=== PATIENT | male | born 1960 | race Caucasian/White ===

== ENCOUNTER 2023-03-31 16:26 | Emergency (ER) | payer BC ==
[2023-03-31] MEDS ORDERED: Lactated Ringer's 1,000 ML ONE ×2 (17:06→18:13)
[2023-03-31 17:18] LABS: #Basophils 0.1 thou/uL (0.0-0.2); #Eosinphils 0.3 thou/uL (0.0-0.7); #Lymphocytes 1.8 thou/uL (1.20-3.40); #Monocytes 1.3 thou/uL (0.11-0.59); #Neutrophils 7.1 thou/uL (1.40-6.50); %Basophils 1.2 % (0.0-1.0); %Eosinophils 2.4 % (0.0-10.0); %Lymphocytes 17.4 % (21.0-51.0); %Monocytes 11.8 % (0.0-10.0); %Neutrophils 67.1 % (42.0-75.0); Hematocrit 46.1 % (42.0-52.0); Mean Corpuscular HGB CONC 32.6 g/dL (32.0-36.0); Mean Corpuscular Hemoglobin 29.8 pg (27.0-31.0); Mean Corpuscular Volume 91.3 fl (78.0-98.0); Mean Platelet Volume 9.8 fL (7.4-10.4); Platelet Count 187 10x3/uL (130-400); RBC Distribution Width 11.9 % (11.5-14.5); Red Blood Cell (RBC) Count 5.04 mill/uL (4.70-6.10); White Blood Cell (WBC) Count 10.5 10x3/uL (4.8-10.8)
[2023-03-31 17:33] LABS: ALT (SGPT) 157 U/L (8-55); AST (SGOT) 71 U/L (5-34); Alkaline Phosphatase 99 U/L (40-110); Anion Gap 21 mmol/L (10-20); BUN (Urea Nitrogen) 52 mg/dL (8.4-25.7); Bilirubin, Total 0.5 mg/dL (0.2-1.2); CK (CPK) 16 U/L (30-200); Calc. Creatinine Clearance 0 mL/min (70-130); Calcium 11.6 mg/dL (7.8-10.44); Carbon Dioxide 24 mmol/L (23-31); Chloride 100 mmol/L (98-107); Estimated GFR 24; Globulin 3.2 g/dL (2.4-3.5); Glucose 121 mg/dL (80-115); Protein, Total 7.2 g/dL (5.8-8.1); Sodium 141 mmol/L (136-145)
[2023-03-31 17:59] LABS: Bilirubin Small (Negative); Blood, Urine Trace (Negative); Clarity Clear (Clear); Glucose, Urine (Dipstick) Negative (Negative); Ketone, Urine Trace mg/dL (Negative); Leukocyte Negative (Negative); Nitrite Negative (Negative); Protein, Urine (Dipstick) 100 mg/dL (Neg-Trace); Specific Gravity, Urine 1.025 (1.005-1.030); Urobilinogen 0.2 mg/dL (Less than 2); pH, Urine 5.5 (5.0-9.0)
[2023-03-31 18:08] LABS: CAUTI Indications for Culture Pelvic or flank pain; RBC/HPF 0-3 HPF (0-3); Squamous Epithelial None Seen HPF (0-3); WBC/HPF None Seen HPF (0-3)
[2023-03-31 18:09] LABS: Bacteria/HPF Rare-Few HPF (None Seen); Epithelial Cast 0-3 LPF (None Seen); Mucous/LPF Few LPF (<2+); Urine Culture Reflex No No
== END 2023-03-31 20:15 | disposition short-term general hospital (02) ==
LOC: MADERS 16:26
DX: N17.9 Acute kidney failure, unspecified (principal); E83.52 Hypercalcemia; R74.01 Elevation of levels of liver transaminase levels; I10 Essential (primary) hypertension; E78.00 Pure hypercholesterolemia, unspecified; Z87.891 Personal history of nicotine dependence; Z79.891 Long term (current) use of opiate analgesic; Z79.899 Other long term (current) drug therapy
CPT/HCPCS: 80053; 81001; 82550; 83735; 85025; 93005; 94760; 96360; J7120

== ENCOUNTER 2023-11-24 21:10 | Emergency (ER) | payer BC ==
[~2023-11-24 21:10] MED LIST: Iopamidol 370 76% 100 ML VIAL ONE
[2023-11-24] MEDS ORDERED: levETIRAcetam 500 MG (5 mL) VIAL ONE (21:33)
[2023-11-24 21:53] LABS: #Basophils 0.2 thou/uL (0.0-0.2); #Lymphocytes 1.2 thou/uL (1.20-3.40); #Monocytes 1.3 thou/uL (0.11-0.59); #Neutrophils 8.5 thou/uL (1.40-6.50); %Basophils 1.5 % (0.0-1.0); %Eosinophils 0.4 % (0.0-10.0); %Lymphocytes 10.6 % (21.0-51.0); %Monocytes 11.5 % (0.0-10.0); %Neutrophils 76.1 % (42.0-75.0); Hematocrit 24.9 % (42.0-52.0); Hemoglobin 8.3 g/dL (14.0-18.0); Mean Corpuscular HGB CONC 33.1 g/dL (32.0-36.0); Mean Corpuscular Hemoglobin 30.3 pg (27.0-31.0); Mean Corpuscular Volume 91.5 fl (78.0-98.0); Mean Platelet Volume 5.6 fL (7.4-10.4); Platelet Count 227 10x3/uL (130-400); RBC Distribution Width 17.1 % (11.5-14.5); Red Blood Cell (RBC) Count 2.72 mill/uL (4.70-6.10); White Blood Cell (WBC) Count 11.1 10x3/uL (4.8-10.8)
[2023-11-24 22:06] LABS: INR-International Normal Ratio 1.1; PTT 31.7 sec (22.9-36.1); Prothrombin Time 13.7 sec (12.0-14.7)
[2023-11-24 22:10] LABS: Base Excess-Venous 0.5 mmol/L (-2.0 to 3.0); Bicarbonate (HCO3v) 23.5 mmol/L (22.0-28.0); CO2 Tension (PvCO2) 30.1 mmHg (42.0-51.0); Calcium, Ionized 0.78 mmol/L (1.15-1.33); Chloride 102 mmol/L (98-107); Hemoglobin - Calc 8.1 g/dL (14.0-18.0); Potassium 2.9 mmol/L (3.5-5.1); Sodium 137 mmol/L (138-145); T. Carbon Dioxide 24.4 mmol/L (22.0-28.0); vO2 Saturation-calc 97.7 % (60.0-85.0)
[2023-11-24 22:22] LABS: Acetaminophen Less than 10 mcg/mL (10.0-30.0); Alcohol Less than 10.0 mg/dL (Less than 10); Lipase 21 U/L (8-78); Magnesium Less than 0.6 mg/dL (1.6-2.6); Salicylate Less than 8.0 mg/dL (15.0-30.0)
[2023-11-24 22:24] LABS: ALT (SGPT) Less than 7 U/L (8-55); AST (SGOT) 14 U/L (5-34); Albumin 2.6 g/dL (3.4-4.8); Alkaline Phosphatase 97 U/L (40-110); Anion Gap 21 mmol/L (10-20); BUN (Urea Nitrogen) 14 mg/dL (8.4-25.7); Bilirubin, Total 0.6 mg/dL (0.2-1.2); CK (CPK) 139 U/L (30-200); Calc. Creatinine Clearance 0 mL/min (70-130); Carbon Dioxide 21 mmol/L (23-31); Chloride 102 mmol/L (98-107); Estimated GFR 49; Globulin 2.5 g/dL (2.4-3.5); Glucose 108 mg/dL (80-115); Potassium 3.2 mmol/L (3.5-5.1); Protein, Total 5.1 g/dL (5.8-8.1); Sodium 141 mmol/L (136-145)
[2023-11-24 22:28] LABS: Calcium 6.4 mg/dL (7.8-10.44)
[2023-11-24 22:36] LABS: Troponin I 0.057 ng/mL (< 0.028)
[2023-11-24] MEDS ORDERED: Potassium Chloride 20 MEQ TAB ONE (22:37)
[2023-11-24] MEDS ORDERED: Magnesium 2 GM/50 ML BAG (IN WATER) ONE (22:37)
[2023-11-25] MEDS ORDERED: HYDROcodone/Acetaminophen 10/325 mg Tablet ONE (00:22)
== END 2023-11-25 04:00 | disposition short-term general hospital (02) ==
LOC: MADERS 21:10
DX: S06.5XAA Traumatic subdural hemorrhage with loss of consciousness status unknown, initial encounter (principal); S32.019A Unspecified fracture of first lumbar vertebra, initial encounter for closed fracture; R56.9 Unspecified convulsions; I10 Essential (primary) hypertension; Z87.891 Personal history of nicotine dependence; X58.XXXA Exposure to other specified factors, initial encounter
CPT/HCPCS: 36415; 70450; 70496; 70498; 71045; 71250; 74176; 80053; 80307; 82330; 82435; 82550; 82803; 83605; 83690; 83735; 83880; 84132; 84295; 84443; 84484; 85014; 85025; 85610; 85730; 86850; 86900; 86901; 87040; 93005; 96365; 96375; J1953; J3475; Q9967